=== PATIENT | male | born 1980 | race African-American/Black ===

== ENCOUNTER 2016-08-02 09:05 | Inpatient (IN) | payer OTHER ==
[2016-08-02 10:01] VITALS: BMI 25.9
--- NOTE | 2016-08-02 11:52 | HP ---
CIWA Score - CIWA Score Nausea/Vomitin Muscle Tremors: 4-Moderate,w/Arms Extend Anxiety: 4-Mod. Anxious/Guarded Agitation: 3 Paroxysmal Sweats: 3 Orientation: 0-Oriented Tacttile Disturbances: 0-None Auditory Disturbances: 0-None Visual Disturbances: 0-None Headache: 0-None Present CIWA-Ar Total Score: 19 Admission ROS BHS - HPI Chief Complaint: Withdrawal sx. Allergies/Adverse Reactions: Allergies Allergy/AdvReac Type Severity Reaction Status Date / Time shellfish derived Allergy Severe Vomiting Verified 08/02/16 10:18 NKDA Allergy Uncoded 08/02/16 10:18 History of Present Illness: 35 y/o man with hx of alcoholism is admitted for detox. Pt. has been in previous detox,reports 3 yrs. sobriety. He has hx. of alcohol withdrawal seizure three yrs. ago. Exam Limitations: No Limitations - Ebola screening Have you traveled outside of the country in the last 21 days: No Have you had contact with anyone from an Ebola affected area: No Have you been sick,other than usual withdrawal symptoms: No Do you have a fever: No - Review of Systems Constitutional: Diaphoresis EENT: reports: No Symptoms Reported Respiratory: reports: No Symptoms reported Cardiac: reports: No Symptoms Reported GI: reports: Nausea, Vomiting, Abdominal cramping : reports: No Symptoms Reported Musculoskeletal: reports: No Symptoms Reported Integumentary: reports: Sweating Neuro: reports: Seizure (three yrs. ago), Tremors Endocrine: reports: No Symptoms Reported Hematology: reports: No Symptoms Reported Psychiatric: reports: No Sypmtoms Reported Other Systems: Reviewed and Negative Patient History - Patient Medical History Hx Anemia: No Hx Asthma: No Hx Chronic Obstructive Pulmonary Disease (COPD): No Hx Cancer: No Hx Cardiac Disorders: No Hx Congestive Heart Failure: No Hx Hypertension: Yes (was lisinopril 10mg non-compliant) Hx Hypercholesterolemia: No Hx Pacemaker: No HX Cerebrovascular Accident: No Hx Seizures: Yes (alcohol related x1 in 2011) Hx Dementia: No Hx Diabetes: No Hx Gastrointestinal Disorders: No Hx Liver Disease: No Hx Genitourinary Disorders: No Hx Sexually Transmitted Disorders: No Hx Renal Disease (ESRD): No Hx Thyroid Disease: No Hx Human Immunodeficiency Virus (HIV): No Hx Hepatitis C: No Hx Depression: No Hx Suicide Attempt: No Hx Bipolar Disorder: No Hx Schizophrenia: No - Patient Surgical History Past Surgical History: No Hx Neurologic Surgery: No Hx Cataract Extraction: No Hx Cardiac Surgery: No Hx Lung Surgery: No Hx Breast Surgery: No Hx Breast Biopsy: No Hx Abdominal Surgery: No Hx Appendectomy: No Hx Cholecystectomy: No Hx Genitourinary Surgery: No Hx Section: No Hx Orthopedic Surgery: No Anesthesia Reaction: No - PPD History Previous Implant?: Yes Documented Results: Negative w/proof Implanted On Prior [facility] Admission?: Yes Date: 02/15/12 Results: 0 mm PPD to be Administered?: Yes - Smoking Cessation Smoking history: Current every day smoker Have you smoked in the past 12 months: Yes Aproximately how many cigarettes per day: 10 Hx Chewing Tobacco Use: No Initiated information on smoking cessation: Yes 'Breaking Loose' booklet given: 08/02/16 - Substance & Tx. History Hx Alcohol Use: Yes Hx Substance Use: Yes Substance Use Type: Alcohol, Marijuana Hx Substance Use Treatment: Yes (detox,IOP) - Substances Abused Alcohol-beer Route: Oral Frequency: Daily Amount used: 6 (40 oz.) Age of first use: 21 Date of Last Use: 08/01/16 Marijuana Route: Smoking Frequency: Daily Amount used: $20 Age of first use: 15 Date of Last Use: 08/01/16 Family Disease History - Family Disease History Family Disease History: Heart Disease: Grandparent (htn,alcohol), Father (htn, alcohol), Mother (htn,alcohol), Brother (htn,alcohol), Other: Grandparent, Father, Mother, Brother Admission Physical Exam S - Vital Signs Vital Signs: Vital Signs - 24 hr 08/02/16 09:59 Temperature 97 F L Pulse Rate 90 Respiratory 20 Rate Blood Pressure 149/95 - Physical General Appearance: Yes: Tremorous, Irritable, Sweating, Anxious HEENTM: Yes: Other (laceration above left eyebrow healed) Respiratory: Yes: Chest Non-Tender, Lungs Clear, Normal Breath Sounds Neck: Yes: Supple Breast: Yes: Breast Exam Deferred Cardiology: Yes: Regular Rhythm, Regular Rate, S1, S2 Abdominal: Yes: Normal Bowel Sounds, Non Tender, Soft Genitourinary: Yes: Within Normal Limits Back: Yes: Within Normal Limits Musculoskeletal: Yes: Within Normal Limits Extremities: Yes: Tremors Neurological: Yes: Fully Oriented, Alert Integumentary: Yes: Diaphoresis Lymphatic: Yes: Within Normal Limits - Diagnostic (1) Alcohol dependence with uncomplicated withdrawal Current Visit: Yes Status: Acute (2) Alcohol withdrawal seizure Current Visit: Yes Status: Acute Qualifiers: Complication of substance-induced condition: uncomplicated Qualified Code(s): F10.230 - Alcohol dependence with withdrawal, uncomplicated (3) HTN (hypertension) Current Visit: Yes Status: Acute Qualifiers: Hypertension type: essential hypertension Qualified Code(s): I10 - Essential (primary) hypertension Cleared for Admission [facility] - Detox or Rehab [facility] Level of Care: Medically Managed Detox Regimen/Protocol: Librium [facility] Breath Alcohol Content Breath Alcohol Content: 0 Urine Drug Screen - Results Drug Screen Negative: No Urine Drug Screen Results: THC-Marijuana
[2016-08-02] MEDS ORDERED: ACETAMINOPHEN 325 MG TABLET (FP) PO PRN (12:05)
[2016-08-02] MEDS ORDERED: guaiFENesin/D-METHORPHAN HB 10 ML UNIT-DOSE CUPS PO PRN (12:05)
[2016-08-02] MEDS ORDERED: IBUPROFEN 400 MG TABLET (FP) PO PRN (12:05)
[2016-08-02] MEDS ORDERED: MAGNESIUM HYDROX 2400MG/30ML ORAL SUSPENSION 30 ML CUP PO PRN (12:05)
[2016-08-02] MEDS ORDERED: LOPERAMIDE HCL 2 MG CAPSULE PO PRN (12:05)
[2016-08-02] MEDS ORDERED: NICOTINE POLACRILEX 2 MG GUM BUC PRN (12:05)
[2016-08-02] MEDS ORDERED: MAG HYDROX/AL HYDROX/SIMETH 30 ML UNIT-DOSE CUP PO PRN (12:05)
[2016-08-02] MEDS ORDERED: chlordiazePOXIDE HCL 25 MG CAPSULE PO PRN (12:05)
[2016-08-02] MEDS ORDERED: hydrOXYzine PAMOATE 50 MG CAPSULE (FP) PO PRN (12:05)
[2016-08-02] MEDS ORDERED: P-EPHED 60MG/TRIPROLIDI 2.5MG TABLET PO PRN (12:05)
[2016-08-02] MEDS ORDERED: MAGNESIUM CITRATE 300 ML BOTTLE PO PRN (12:05)
[2016-08-02] MEDS ORDERED: MENTHOL/PHENOL 1 EACH UD MM PRN (12:05)
[2016-08-02] MEDS ORDERED: chlordiazePOXIDE HCL 25 MG CAPSULE PO ONE (13:50)
[2016-08-02] MEDS: NICOTINE 21 MG/24 HOURS TOPICAL PATCH TD SCH (14:06)
[2016-08-02] MEDS: LISINOPRIL 10 MG TABLET (FP) PO SCH (14:06)
[2016-08-02 14:36] LABS: HIV 1 & 2 AB NEGATIVE; HIV 1 AGp24 NEGATIVE
--- NOTE | 2016-08-02 16:12 | EKG ---
Test Reason : Blood Pressure : / mmHG Vent. Rate : 078 BPM Atrial Rate : 078 BPM P-R Int : 160 ms QRS Dur : 098 ms QT Int : 356 ms P-R-T Axes : 047 037 002 degrees QTc Int : 405 ms NORMAL SINUS RHYTHM WITH SINUS ARRHYTHMIA NONSPECIFIC T WAVE ABNORMALITY ABNORMAL ECG NO PREVIOUS ECGS AVAILABLE Confirmed by MIKEL HENDRIX, JOSE DANIEL ([id number]) on 08/02/2016 4:12:13 PM Referred By: Confirmed By:JOSE DANIEL MORIN MD
[2016-08-02] MEDS: chlordiazePOXIDE HCL 25 MG CAPSULE PO SCH ×2 (17:30→22:31)
[2016-08-02 19:15] LABS: URINE APPEARANCE CLEAR; URINE BILIRUBIN NEGATIVE (NEGATIVE); URINE BLOOD NEGATIVE (NEGATIVE); URINE COLOR DKYELLOW; URINE GLUCOSE (UA) NEGATIVE (NEGATIVE); URINE KETONE NEGATIVE (NEGATIVE); URINE LEUK ESTERASE NEGATIVE (NEGATIVE); URINE NITRITE NEGATIVE (NEGATIVE); URINE UROBILINOGEN 4.0 E.U/dl E.U./dl (0.2-1.0)
[2016-08-02 19:17] LABS: URINE PROTEIN 2+ (NEGATIVE)
[2016-08-02 19:24] LABS: URINE MUCUS RARE; URINE RBC 2 /hpf (0-3); URINE WBC 1 /hpf (3-5)
[2016-08-02] MEDS: THIAMINE HCL 100 MG TABLET (FP) PO SCH (22:31)
[2016-08-02] MEDS: diphenhydrAMINE HCL 50 MG CAPSULE PO PRN (22:31)
[2016-08-03] MEDS: chlordiazePOXIDE HCL 25 MG CAPSULE PO SCH ×4 (05:41→22:24)
[2016-08-03 10:20] LABS: MCH 28.1 pg (25.7-33.7); MCHC 32.5 g/dl (32.0-35.9); MEAN CELL VOLUME 86.7 fl (80-96); MEAN PLT VOLUME 10.5 fl (7.5-11.1); PLATELET COUNT 183 K/MM3 (134-434); RDW 13.7 % (11.9-15.9)
[2016-08-03] MEDS: PRENATAL VITAMINS W/ FOLIC ACID TABLET (FP) PO SCH (10:22)
[2016-08-03] MEDS: NICOTINE 21 MG/24 HOURS TOPICAL PATCH TD SCH (10:22)
[2016-08-03] MEDS: LISINOPRIL 10 MG TABLET (FP) PO SCH (10:22)
[2016-08-03 10:31] LABS: ALBUMIN 4.1 g/dl (3.4-5.0); ALK PHOS 88 U/L (45-117); ANION GAP 10 (8-16); BILIRUBIN,TOTAL 0.8 mg/dL (0.2-1.0); CALCIUM 9.5 mg/dL (8.5-10.1); CO2 28 mmol/L (21-32); GLUCOSE,RANDOM 131 mg/dL (74-106); SGOT/AST 54 U/L (15-37); SGPT/ALT 33 U/L (12-78); TOT PROT 7.8 g/dl (6.4-8.2)
[2016-08-03 14:50] LABS: URINE APPEARANCE CLEAR; URINE BILIRUBIN NEGATIVE (NEGATIVE); URINE BLOOD NEGATIVE (NEGATIVE); URINE COLOR YELLOW; URINE GLUCOSE (UA) NEGATIVE (NEGATIVE); URINE KETONE NEGATIVE (NEGATIVE); URINE LEUK ESTERASE NEGATIVE (NEGATIVE); URINE NITRITE NEGATIVE (NEGATIVE); URINE UROBILINOGEN NEGATIVE E.U./dl (0.2-1.0)
[2016-08-03 14:52] LABS: URINE PROTEIN 1+ (NEGATIVE)
[2016-08-03 15:21] LABS: URINE MUCUS FEW; URINE WBC 1 /hpf (3-5)
--- NOTE | 2016-08-03 16:43 | PN ---
[facility] CIWA - CIWA Score Nausea/Vomitin-No Nausea/No Vomiting Muscle Tremors: 3 Anxiety: 4-Mod. Anxious/Guarded Agitation: 3 Paroxysmal Sweats: 3 Orientation: 0-Oriented Tacttile Disturbances: 0-None Auditory Disturbances: 0-None Visual Disturbances: 0-None Headache: 0-None Present CIWA-Ar Total Score: 13 S Progress Note (SOAP) Subjective: Anxiety,tremors,sweating,interrupted sleep,restless Objective: 08/03/16 16:42 Vital Signs - 8 hr 08/03/16 08/03/16 10:20 13:39 Temperature 96.2 F L 98.4 F Pulse Rate 70 73 Respiratory 20 18 Rate Blood Pressure 124/85 125/76 Laboratory Tests 08/02/16 08/02/16 08/03/16 11:30 13:00 06:00 WBC 7.0 D RBC 5.15 Hgb 14.5 Hct 44.7 MCV 86.7 MCHC 32.5 RDW 13.7 Plt Count 183 MPV 10.5 Sodium Potassium Chloride Carbon Dioxide Anion Gap BUN Creatinine Creat Clearance w eGFR Random Glucose Calcium Total Bilirubin AST ALT Alkaline Phosphatase Total Protein Albumin Urine Color Dkyellow Urine Appearance Clear Urine pH 7.0 Ur Specific [place] 1.027 Urine Protein 2+ H Urine Glucose (UA) Negative Urine Ketones Negative Urine Blood Negative Urine Nitrite Negative Urine Bilirubin Negative Urine Urobilinogen 4.0 e.u/dl Ur Leukocyte Esterase Negative Urine RBC 2 Urine WBC 1 Urine Mucus Rare RPR Titer HIV 1&2 Antibody Screen Negative HIV P24 Antigen Negative 08/03/16 08/03/16 08/03/16 06:00 06:00 12:20 WBC RBC Hgb Hct MCV MCHC RDW Plt Count MPV Sodium 137 Potassium 3.9 Chloride 99 Carbon Dioxide 28 Anion Gap 10 BUN 12 Creatinine 1.0 D Creat Clearance w eGFR > 60 Random Glucose 131 H D Calcium 9.5 Total Bilirubin 0.8 AST 54 H ALT 33 D Alkaline Phosphatase 88 Total Protein 7.8 Albumin 4.1 Urine Color Yellow Urine Appearance Clear Urine pH 6.0 Ur Specific [place] 1.027 Urine Protein 1+ H Urine Glucose (UA) Negative Urine Ketones Negative Urine Blood Negative Urine Nitrite Negative Urine Bilirubin Negative Urine Urobilinogen Negative Ur Leukocyte Esterase Negative Urine RBC None Urine WBC 1 Urine Mucus Few RPR Titer Nonreactive HIV 1&2 Antibody Screen HIV P24 Antigen labs noted Assessment: 08/03/16 16:42 withdrawal sx. Plan: continue detox
[2016-08-03] MEDS: THIAMINE HCL 100 MG TABLET (FP) PO SCH (22:24)
[2016-08-03] MEDS: diphenhydrAMINE HCL 50 MG CAPSULE PO PRN (22:25)
[2016-08-04] MEDS: chlordiazePOXIDE HCL 25 MG CAPSULE PO SCH ×2 (05:34→10:27)
[2016-08-04] MEDS: LISINOPRIL 10 MG TABLET (FP) PO SCH (10:27)
[2016-08-04] MEDS: NICOTINE 21 MG/24 HOURS TOPICAL PATCH TD SCH (10:27)
[2016-08-04] MEDS: PRENATAL VITAMINS W/ FOLIC ACID TABLET (FP) PO SCH (10:27)
--- NOTE | 2016-08-04 13:23 | PN ---
[facility] CIWA - CIWA Score Nausea/Vomitin-No Nausea/No Vomiting Muscle Tremors: 3 Anxiety: 4-Mod. Anxious/Guarded Agitation: 3 Paroxysmal Sweats: 3 Orientation: 0-Oriented Tacttile Disturbances: 0-None Auditory Disturbances: 0-None Visual Disturbances: 0-None Headache: 0-None Present CIWA-Ar Total Score: 13 S Progress Note (SOAP) Subjective: sweating,interrupted sleep,restless Objective: 08/04/16 13:21 Vital Signs - 8 hr 08/04/16 08/04/16 06:45 09:57 Temperature 97.0 F L 96.3 F L Pulse Rate 86 81 Respiratory 18 18 Rate Blood Pressure 132/91 129/92 Laboratory Tests 08/02/16 08/02/16 08/03/16 11:30 13:00 06:00 WBC 7.0 D RBC 5.15 Hgb 14.5 Hct 44.7 MCV 86.7 MCHC 32.5 RDW 13.7 Plt Count 183 MPV 10.5 Sodium Potassium Chloride Carbon Dioxide Anion Gap BUN Creatinine Creat Clearance w eGFR Random Glucose Calcium Total Bilirubin AST ALT Alkaline Phosphatase Total Protein Albumin Urine Color Dkyellow Urine Appearance Clear Urine pH 7.0 Ur Specific [place] 1.027 Urine Protein 2+ H Urine Glucose (UA) Negative Urine Ketones Negative Urine Blood Negative Urine Nitrite Negative Urine Bilirubin Negative Urine Urobilinogen 4.0 e.u/dl Ur Leukocyte Esterase Negative Urine RBC 2 Urine WBC 1 Urine Mucus Rare RPR Titer HIV 1&2 Antibody Screen Negative HIV P24 Antigen Negative 08/03/16 08/03/16 08/03/16 06:00 06:00 12:20 WBC RBC Hgb Hct MCV MCHC RDW Plt Count MPV Sodium 137 Potassium 3.9 Chloride 99 Carbon Dioxide 28 Anion Gap 10 BUN 12 Creatinine 1.0 D Creat Clearance w eGFR > 60 Random Glucose 131 H D Calcium 9.5 Total Bilirubin 0.8 AST 54 H ALT 33 D Alkaline Phosphatase 88 Total Protein 7.8 Albumin 4.1 Urine Color Yellow Urine Appearance Clear Urine pH 6.0 Ur Specific [place] 1.027 Urine Protein 1+ H Urine Glucose (UA) Negative Urine Ketones Negative Urine Blood Negative Urine Nitrite Negative Urine Bilirubin Negative Urine Urobilinogen Negative Ur Leukocyte Esterase Negative Urine RBC None Urine WBC 1 Urine Mucus Few RPR Titer Nonreactive HIV 1&2 Antibody Screen HIV P24 Antigen labs noted Assessment: 08/04/16 13:23 Withdrawal sx. Plan: Continue detox
[2016-08-04] MEDS: chlordiazePOXIDE 5 MG CAPSULE PO SCH ×2 (17:20→22:36)
[2016-08-04] MEDS: THIAMINE HCL 100 MG TABLET (FP) PO SCH (22:36)
[2016-08-04] MEDS: diphenhydrAMINE HCL 50 MG CAPSULE PO PRN (22:37)
[2016-08-05] MEDS: chlordiazePOXIDE 5 MG CAPSULE PO SCH ×2 (05:48→10:21)
[2016-08-05] MEDS: LISINOPRIL 10 MG TABLET (FP) PO SCH (10:21)
[2016-08-05] MEDS: BACITRACIN 0.9 GM PACKET TP SCH ×2 (10:21→22:23)
[2016-08-05] MEDS: PRENATAL VITAMINS W/ FOLIC ACID TABLET (FP) PO SCH (10:22)
[2016-08-05] MEDS: NICOTINE 21 MG/24 HOURS TOPICAL PATCH TD SCH (10:22)
--- NOTE | 2016-08-05 11:18 | PN ---
[facility] Progress Note (SOAP) Subjective: ANXIETY,SWEATS,FATIGUE. Objective: 08/05/16 11:18 Vital Signs Temperature 97.1 F L 08/05/16 09:42 Pulse Rate 79 08/05/16 09:42 Respiratory Rate 18 08/05/16 09:42 Blood Pressure 144/98 08/05/16 09:42 O2 Sat by Pulse Oximetry (%) Assessment: 08/05/16 11:18 WITHDRAWAL SX Plan: CONTINUE DETOX
[2016-08-05] MEDS: chlordiazePOXIDE HCL 10 MG CAPSULE PO SCH ×2 (17:29→22:23)
[2016-08-05] MEDS: THIAMINE HCL 100 MG TABLET (FP) PO SCH (22:23)
[2016-08-05] MEDS: diphenhydrAMINE HCL 50 MG CAPSULE PO PRN (22:23)
[2016-08-06] MEDS: chlordiazePOXIDE HCL 10 MG CAPSULE PO SCH (05:44)
[2016-08-06 06:29] VITALS: BP 123/88; PULSE 80; TEMP 96.2
--- NOTE | 2016-08-06 15:36 | DS ---
[facility] Detox Discharge Summary Admission Date: 08/02/16 Discharge Date: 08/06/16 - History Present History: Alcohol Dependence Additional Comments: ADVISED PT. TO FOLLOW-UP WITH [facility] / REHAB MEDICAL PROVIDER AFTER DISCHARGE FROM DETOX FOR GENERAL MEDICAL ASSESSMENT. Pertinent Past History: HTN. - Physical Exam Results Vital Signs: Vital Signs Temperature 96.2 F L 08/06/16 06:29 Pulse Rate 80 08/06/16 06:29 Respiratory Rate 18 08/06/16 06:29 Blood Pressure 123/88 08/06/16 06:29 O2 Sat by Pulse Oximetry (%) Pertinent Admission Physical Exam Findings: WITHDRAWAL SYMPTOMS. Laboratory Last Values WBC 7.0 K/mm3 (4.0-10.0) D 08/03/16 06:00 RBC 5.15 M/mm3 (4.00-5.60) 08/03/16 06:00 Hgb 14.5 GM/dL (11.7-16.9) 08/03/16 06:00 Hct 44.7 % (35.4-49) 08/03/16 06:00 MCV 86.7 fl (80-96) 08/03/16 06:00 MCHC 32.5 g/dl (32.0-35.9) 08/03/16 06:00 RDW 13.7 % (11.9-15.9) 08/03/16 06:00 Plt Count 183 K/MM3 (134-434) 08/03/16 06:00 MPV 10.5 fl (7.5-11.1) 08/03/16 06:00 Sodium 137 mmol/L (136-145) 08/03/16 06:00 Potassium 3.9 mmol/L (3.5-5.1) 08/03/16 06:00 Chloride 99 mmol/L (98-107) 08/03/16 06:00 Carbon Dioxide 28 mmol/L (21-32) 08/03/16 06:00 Anion Gap 10 (8-16) 08/03/16 06:00 BUN 12 mg/dL (7-18) 08/03/16 06:00 Creatinine 1.0 mg/dL (0.7-1.3) D 08/03/16 06:00 Creat Clearance w eGFR > 60 (>60) 08/03/16 06:00 Random Glucose 131 mg/dL (74-106) H D 08/03/16 06:00 Calcium 9.5 mg/dL (8.5-10.1) 08/03/16 06:00 Total Bilirubin 0.8 mg/dL (0.2-1.0) 08/03/16 06:00 AST 54 U/L (15-37) H 08/03/16 06:00 ALT 33 U/L (12-78) D 08/03/16 06:00 Alkaline Phosphatase 88 U/L (45-117) 08/03/16 06:00 Total Protein 7.8 g/dl (6.4-8.2) 08/03/16 06:00 Albumin 4.1 g/dl (3.4-5.0) 08/03/16 06:00 Urine Color Yellow 08/03/16 12:20 Urine Appearance Clear 08/03/16 12:20 Urine pH 6.0 (5.0-8.0) 08/03/16 12:20 Ur Specific [place] 1.027 (1.001-1.035) 08/03/16 12:20 Urine Protein 1+ (NEGATIVE) H 08/03/16 12:20 Urine Glucose (UA) Negative (NEGATIVE) 08/03/16 12:20 Urine Ketones Negative (NEGATIVE) 08/03/16 12:20 Urine Blood Negative (NEGATIVE) 08/03/16 12:20 Urine Nitrite Negative (NEGATIVE) 08/03/16 12:20 Urine Bilirubin Negative (NEGATIVE) 08/03/16 12:20 Urine Urobilinogen Negative E.U./dl (0.2-1.0) 08/03/16 12:20 Ur Leukocyte Esterase Negative (NEGATIVE) 08/03/16 12:20 Urine RBC None /hpf (0-3) 08/03/16 12:20 Urine WBC 1 /hpf (3-5) 08/03/16 12:20 Urine Mucus Few 08/03/16 12:20 RPR Titer Nonreactive (NONREACTIVE) 08/03/16 06:00 HIV 1&2 Antibody Screen Negative 08/02/16 11:30 HIV P24 Antigen Negative 08/02/16 11:30 LABS NOTED. - Treatment Hospital Course: Detox Protocol Followed, Detoxed Safely, Responded well, Discharged Condition Good - Medication Discharge Medications: Ambulatory Orders No Home Medications 02/13/12 - Diagnosis (1) Alcohol dependence with uncomplicated withdrawal Status: Acute (2) Alcohol withdrawal seizure Status: Acute Qualifiers: Complication of substance-induced condition: uncomplicated Qualified Code(s): F10.230 - Alcohol dependence with withdrawal, uncomplicated (3) HTN (hypertension) Status: Chronic Qualifiers: Hypertension type: essential hypertension Qualified Code(s): I10 - Essential (primary) hypertension - AMA Did Patient Leave Against Medical Advice: No
== END 2016-08-06 09:17 | disposition home or self-care (01) | DRG 775 ==
LOC: YASAS 09:05 → Y3N 13:19
PROVIDERS: ADMIT Internal Medicine; ATTEND Internal Medicine
PROC: HZ2ZZZZ Detoxification Services for Substance Abuse Treatment (ICD-10-PCS; principal; 2016-08-06)
DX: F10.230 Alcohol dependence with withdrawal, uncomplicated (principal); G40.509 Epileptic seizures related to external causes, not intractable, without status epilepticus; I10 Essential (primary) hypertension
CPT/HCPCS: 36415; 80053; 81003; 81015; 85027; 86593; 87389; 93005; 93010

== ENCOUNTER 2021-02-25 11:50 | Inpatient (IN) | payer OTHER ==
[2021-02-25] MEDS ORDERED: MAGNESIUM CITRATE 300 ML BOTTLE PO PRN ×2 (15:59→20:22)
[2021-02-25] MEDS ORDERED: LOPERAMIDE HCL 2 MG CAPSULE PO PRN ×2 (15:59→20:22)
[2021-02-25] MEDS ORDERED: P-EPHED 60MG/TRIPROLIDI 2.5MG TABLET PO PRN ×2 (15:59→20:22)
[2021-02-25] MEDS ORDERED: IBUPROFEN 400 MG TABLET (FP) PO PRN ×2 (15:59→20:22)
[2021-02-25] MEDS ORDERED: MAG HYDROX/AL HYDROX/SIMETH 30 ML UNIT-DOSE CUP PO PRN ×2 (15:59→20:22)
[2021-02-25] MEDS ORDERED: MAGNESIUM HYDROX 2400MG/30ML ORAL SUSPENSION 30 ML CUP PO PRN ×2 (15:59→20:22)
[2021-02-25] MEDS ORDERED: NICOTINE 10 MG CARTRIDGE (INHALER) IH PRN (15:59)
[2021-02-25] MEDS ORDERED: hydrOXYzine PAMOATE 25 MG CAPSULE (FP) PO PRN (15:59)
[2021-02-25] MEDS ORDERED: ACETAMINOPHEN 325 MG TABLET (FP) PO PRN (15:59)
[2021-02-25] MEDS ORDERED: guaiFENesin 200 MG/10 ML 10 ML UNIT-DOSE CUPS PO PRN ×2 (15:59→20:22)
[2021-02-25 16:04] VITALS: BMI 29.7
[2021-02-25] MEDS ORDERED: THIAMINE HCL 100 MG TABLET (FP) PO SCH (22:00)
[2021-02-25] MEDS ORDERED: MELATONIN 5 MG TABLETS PO SCH (22:00)
[2021-02-25] MEDS: THIAMINE HCL 100 MG TABLET (FP) PO SCH (22:31)
[2021-02-25] MEDS ORDERED: levETIRAcetam 500 MG TABLET (FP) PO ONE (23:31)
[2021-02-25] MEDS: hydrOXYzine PAMOATE 25 MG CAPSULE (FP) PO SCH (23:42)
[2021-02-25] MEDS: MELATONIN 5 MG TABLETS PO SCH (23:43)
[2021-02-26] MEDS: hydrOXYzine PAMOATE 25 MG CAPSULE (FP) PO SCH ×5 (06:48→22:06)
[2021-02-26] MEDS: NICOTINE 7 MG/24 HOURS TOPICAL PATCH TD SCH (09:58)
[2021-02-26] MEDS: levETIRAcetam 500 MG TABLET (FP) PO SCH ×2 (09:58→22:06)
[2021-02-26] MEDS: PRENATAL VITAMINS W/ FOLIC ACID TABLET (FP) PO SCH (09:58)
[2021-02-26] MEDS: NICOTINE 10 MG CARTRIDGE (INHALER) IH PRN (09:59)
[2021-02-26] MEDS ORDERED: PRENATAL VITAMINS W/ FOLIC ACID TABLET (FP) PO SCH (10:00)
[2021-02-26] MEDS ORDERED: NICOTINE 7 MG/24 HOURS TOPICAL PATCH TD SCH (10:00)
[2021-02-26 11:17] LABS: URINE APPEARANCE CLEAR; URINE BILIRUBIN NEGATIVE (NEGATIVE); URINE COLOR YELLOW; URINE GLUCOSE (UA) NEGATIVE (NEGATIVE); URINE KETONE NEGATIVE (NEGATIVE); URINE LEUK ESTERASE NEGATIVE (NEGATIVE); URINE NITRITE NEGATIVE (NEGATIVE); URINE PROTEIN NEGATIVE (NEGATIVE); URINE UROBILINOGEN 0.2 mg/dL (0.2-1.0)
[2021-02-26 11:23] LABS: HEMATOCRIT 41.1 % (35.4-49); HEMOGLOBIN 13.9 GM/dL (11.7-16.9); MCH 29.6 pg (25.7-33.7); MCHC 33.8 g/dl (32.0-35.9); MEAN CELL VOLUME 87.4 fl (80-96); MEAN PLT VOLUME 10.1 fl (7.5-11.1); PLATELET COUNT 215 10^3/uL (134-434); RDW 13.8 % (11.9-15.9); WHITE BLOOD COUNT 6.3 K/mm3 (4.0-10.0)
[2021-02-26 11:39] LABS: ALBUMIN 3.2 g/dl (3.4-5.0)
[2021-02-26 11:42] LABS: CREATININE 0.9 mg/dL (0.55-1.3)
[2021-02-26 11:44] LABS: BILIRUBIN,TOTAL 0.6 mg/dL (0.2-1); TOT PROT 7.3 g/dl (6.4-8.2)
[2021-02-26] MEDS ORDERED: cloNIDine HCL 0.1 MG TABLET PO ONE (21:48)
[2021-02-26] MEDS: THIAMINE HCL 100 MG TABLET (FP) PO SCH (22:06)
[2021-02-26] MEDS: MELATONIN 5 MG TABLETS PO SCH (22:07)
[2021-02-27] MEDS: hydrOXYzine PAMOATE 25 MG CAPSULE (FP) PO SCH ×5 (06:32→22:05)
[2021-02-27] MEDS: levETIRAcetam 500 MG TABLET (FP) PO SCH ×2 (10:22→22:04)
[2021-02-27] MEDS: PRENATAL VITAMINS W/ FOLIC ACID TABLET (FP) PO SCH (10:23)
[2021-02-27] MEDS: NICOTINE 7 MG/24 HOURS TOPICAL PATCH TD SCH (10:23)
[2021-02-27] MEDS: THIAMINE HCL 100 MG TABLET (FP) PO SCH (22:04)
[2021-02-27] MEDS: MELATONIN 5 MG TABLETS PO SCH (22:05)
[2021-02-28] MEDS: hydrOXYzine PAMOATE 25 MG CAPSULE (FP) PO SCH ×5 (06:01→21:58)
[2021-02-28] MEDS: PRENATAL VITAMINS W/ FOLIC ACID TABLET (FP) PO SCH (09:49)
[2021-02-28] MEDS: levETIRAcetam 500 MG TABLET (FP) PO SCH ×2 (09:49→21:58)
[2021-02-28] MEDS: NICOTINE 7 MG/24 HOURS TOPICAL PATCH TD SCH (09:50)
[2021-02-28] MEDS: THIAMINE HCL 100 MG TABLET (FP) PO SCH (21:58)
[2021-02-28] MEDS: MELATONIN 5 MG TABLETS PO SCH (21:58)
[2021-03-01] MEDS: hydrOXYzine PAMOATE 25 MG CAPSULE (FP) PO SCH ×2 (07:23→10:09)
[2021-03-01] MEDS: NICOTINE 7 MG/24 HOURS TOPICAL PATCH TD SCH (10:09)
[2021-03-01] MEDS: levETIRAcetam 500 MG TABLET (FP) PO SCH ×2 (10:09→21:40)
[2021-03-01] MEDS: PRENATAL VITAMINS W/ FOLIC ACID TABLET (FP) PO SCH (10:09)
[2021-03-01] MEDS: hydrOXYzine PAMOATE 25 MG CAPSULE (FP) PO PRN ×2 (15:58→21:41)
[2021-03-01] MEDS: MELATONIN 5 MG TABLETS PO SCH (21:40)
[2021-03-01] MEDS: THIAMINE HCL 100 MG TABLET (FP) PO SCH (21:41)
[2021-03-01] MEDS: NICOTINE 10 MG CARTRIDGE (INHALER) IH PRN (21:42)
[2021-03-02] MEDS: hydrOXYzine PAMOATE 25 MG CAPSULE (FP) PO PRN ×4 (06:22→21:36)
[2021-03-02] MEDS: NICOTINE 7 MG/24 HOURS TOPICAL PATCH TD SCH (10:21)
[2021-03-02] MEDS: levETIRAcetam 500 MG TABLET (FP) PO SCH ×2 (10:21→21:36)
[2021-03-02] MEDS: PRENATAL VITAMINS W/ FOLIC ACID TABLET (FP) PO SCH (10:23)
[2021-03-02] MEDS: MELATONIN 5 MG TABLETS PO SCH (21:36)
[2021-03-02] MEDS: THIAMINE HCL 100 MG TABLET (FP) PO SCH (21:36)
[2021-03-03] MEDS: hydrOXYzine PAMOATE 25 MG CAPSULE (FP) PO PRN ×3 (06:07→21:24)
[2021-03-03] MEDS: PRENATAL VITAMINS W/ FOLIC ACID TABLET (FP) PO SCH (10:11)
[2021-03-03] MEDS: levETIRAcetam 500 MG TABLET (FP) PO SCH ×2 (10:11→21:24)
[2021-03-03] MEDS: NICOTINE 7 MG/24 HOURS TOPICAL PATCH TD SCH (10:12)
[2021-03-03] MEDS: TOLNAFTATE 1% CREAM 15 GM TUBE TP SCH ×2 (15:22→21:25)
[2021-03-03] MEDS: THIAMINE HCL 100 MG TABLET (FP) PO SCH (21:24)
[2021-03-03] MEDS: MELATONIN 5 MG TABLETS PO SCH (21:24)
[2021-03-04] MEDS: hydrOXYzine PAMOATE 25 MG CAPSULE (FP) PO PRN ×3 (06:14→21:26)
[2021-03-04] MEDS: levETIRAcetam 500 MG TABLET (FP) PO SCH ×2 (10:26→21:25)
[2021-03-04] MEDS: TOLNAFTATE 1% CREAM 15 GM TUBE TP SCH ×2 (10:28→21:26)
[2021-03-04] MEDS: PRENATAL VITAMINS W/ FOLIC ACID TABLET (FP) PO SCH (10:28)
[2021-03-04] MEDS: NICOTINE 7 MG/24 HOURS TOPICAL PATCH TD SCH (10:28)
[2021-03-04] MEDS: THIAMINE HCL 100 MG TABLET (FP) PO SCH (21:25)
[2021-03-04] MEDS: MELATONIN 5 MG TABLETS PO SCH (21:25)
[2021-03-05] MEDS: PRENATAL VITAMINS W/ FOLIC ACID TABLET (FP) PO SCH (09:43)
[2021-03-05] MEDS: levETIRAcetam 500 MG TABLET (FP) PO SCH ×2 (09:44→22:06)
[2021-03-05] MEDS: hydrOXYzine PAMOATE 25 MG CAPSULE (FP) PO PRN ×2 (09:44→22:08)
[2021-03-05] MEDS: TOLNAFTATE 1% CREAM 15 GM TUBE TP SCH ×2 (09:44→22:08)
[2021-03-05] MEDS: NICOTINE 7 MG/24 HOURS TOPICAL PATCH TD SCH (09:44)
[2021-03-05] MEDS: MELATONIN 5 MG TABLETS PO SCH (22:06)
[2021-03-05] MEDS: THIAMINE HCL 100 MG TABLET (FP) PO SCH (22:06)
[2021-03-05] MEDS ORDERED: PT OWN MED DRAWER 7, Y5N ONE (22:10)
[2021-03-06] MEDS: NICOTINE 7 MG/24 HOURS TOPICAL PATCH TD SCH (10:09)
[2021-03-06] MEDS: levETIRAcetam 500 MG TABLET (FP) PO SCH ×2 (10:09→21:45)
[2021-03-06] MEDS: PRENATAL VITAMINS W/ FOLIC ACID TABLET (FP) PO SCH (10:09)
[2021-03-06] MEDS: hydrOXYzine PAMOATE 25 MG CAPSULE (FP) PO PRN ×2 (10:10→21:45)
[2021-03-06] MEDS: TOLNAFTATE 1% CREAM 15 GM TUBE TP SCH ×2 (11:09→21:46)
[2021-03-06] MEDS: NICOTINE 10 MG CARTRIDGE (INHALER) IH PRN (20:55)
[2021-03-06] MEDS: THIAMINE HCL 100 MG TABLET (FP) PO SCH (21:46)
[2021-03-06] MEDS: MELATONIN 5 MG TABLETS PO SCH (21:46)
[2021-03-07] MEDS: PRENATAL VITAMINS W/ FOLIC ACID TABLET (FP) PO SCH (10:26)
[2021-03-07] MEDS: hydrOXYzine PAMOATE 25 MG CAPSULE (FP) PO PRN ×2 (10:27→21:38)
[2021-03-07] MEDS: levETIRAcetam 500 MG TABLET (FP) PO SCH ×2 (10:27→21:38)
[2021-03-07] MEDS: TOLNAFTATE 1% CREAM 15 GM TUBE TP SCH ×2 (10:27→21:39)
[2021-03-07] MEDS: NICOTINE 7 MG/24 HOURS TOPICAL PATCH TD SCH (10:27)
[2021-03-07] MEDS: MELATONIN 5 MG TABLETS PO SCH (21:38)
[2021-03-07] MEDS: THIAMINE HCL 100 MG TABLET (FP) PO SCH (21:40)
[2021-03-08] MEDS ORDERED: PT OWN MED DRAWER 7, Y5N ONE (10:54)
[2021-03-08] MEDS: TOLNAFTATE 1% CREAM 15 GM TUBE TP SCH ×2 (10:55→21:41)
[2021-03-08] MEDS: PRENATAL VITAMINS W/ FOLIC ACID TABLET (FP) PO SCH (10:55)
[2021-03-08] MEDS: NICOTINE 7 MG/24 HOURS TOPICAL PATCH TD SCH (10:55)
[2021-03-08] MEDS: hydrOXYzine PAMOATE 25 MG CAPSULE (FP) PO PRN ×2 (10:56→21:41)
[2021-03-08] MEDS: levETIRAcetam 500 MG TABLET (FP) PO SCH ×2 (10:57→21:40)
[2021-03-08] MEDS: THIAMINE HCL 100 MG TABLET (FP) PO SCH (21:41)
[2021-03-08] MEDS: MELATONIN 5 MG TABLETS PO SCH (21:41)
[2021-03-09] MEDS: PRENATAL VITAMINS W/ FOLIC ACID TABLET (FP) PO SCH (10:12)
[2021-03-09] MEDS: levETIRAcetam 500 MG TABLET (FP) PO SCH ×2 (10:12→21:25)
[2021-03-09] MEDS: hydrOXYzine PAMOATE 25 MG CAPSULE (FP) PO PRN ×2 (10:13→21:25)
[2021-03-09] MEDS: TOLNAFTATE 1% CREAM 15 GM TUBE TP SCH ×2 (10:53→21:25)
[2021-03-09] MEDS: NICOTINE 7 MG/24 HOURS TOPICAL PATCH TD SCH (10:53)
[2021-03-09] MEDS: THIAMINE HCL 100 MG TABLET (FP) PO SCH (21:25)
[2021-03-09] MEDS: MELATONIN 5 MG TABLETS PO SCH (21:25)
[2021-03-10] MEDS: levETIRAcetam 500 MG TABLET (FP) PO SCH ×2 (10:07→21:22)
[2021-03-10] MEDS: PRENATAL VITAMINS W/ FOLIC ACID TABLET (FP) PO SCH (10:07)
[2021-03-10] MEDS: TOLNAFTATE 1% CREAM 15 GM TUBE TP SCH ×2 (10:07→21:23)
[2021-03-10] MEDS: NICOTINE 7 MG/24 HOURS TOPICAL PATCH TD SCH (10:07)
[2021-03-10] MEDS: hydrOXYzine PAMOATE 25 MG CAPSULE (FP) PO PRN ×3 (10:08→21:22)
[2021-03-10] MEDS: THIAMINE HCL 100 MG TABLET (FP) PO SCH (21:22)
[2021-03-10] MEDS: MELATONIN 5 MG TABLETS PO SCH (21:22)
[2021-03-11] MEDS: levETIRAcetam 500 MG TABLET (FP) PO SCH ×2 (10:31→21:40)
[2021-03-11] MEDS: PRENATAL VITAMINS W/ FOLIC ACID TABLET (FP) PO SCH (10:31)
[2021-03-11] MEDS: TOLNAFTATE 1% CREAM 15 GM TUBE TP SCH ×2 (10:32→21:40)
[2021-03-11] MEDS: NICOTINE 7 MG/24 HOURS TOPICAL PATCH TD SCH (10:32)
[2021-03-11] MEDS: MELATONIN 5 MG TABLETS PO SCH (21:40)
[2021-03-11] MEDS: hydrOXYzine PAMOATE 25 MG CAPSULE (FP) PO PRN (21:40)
[2021-03-11] MEDS: THIAMINE HCL 100 MG TABLET (FP) PO SCH (21:40)
[2021-03-12] MEDS: hydrOXYzine PAMOATE 25 MG CAPSULE (FP) PO PRN (07:47)
[2021-03-12] MEDS: levETIRAcetam 500 MG TABLET (FP) PO SCH ×2 (10:20→22:06)
[2021-03-12] MEDS: PRENATAL VITAMINS W/ FOLIC ACID TABLET (FP) PO SCH (10:21)
[2021-03-12] MEDS: NICOTINE 7 MG/24 HOURS TOPICAL PATCH TD SCH (10:21)
[2021-03-12] MEDS: TOLNAFTATE 1% CREAM 15 GM TUBE TP SCH ×2 (10:21→22:07)
[2021-03-12] MEDS ORDERED: JANSSEN COVID-19 VAC,AD26/PF 0.5 ML IM ONE (12:00)
[2021-03-12] MEDS: SUVOREXANT 10 MG TABLET PO PRN (22:05)
[2021-03-12] MEDS: THIAMINE HCL 100 MG TABLET (FP) PO SCH (22:06)
[2021-03-13] MEDS: levETIRAcetam 500 MG TABLET (FP) PO SCH ×2 (10:18→21:40)
[2021-03-13] MEDS: PRENATAL VITAMINS W/ FOLIC ACID TABLET (FP) PO SCH (10:18)
[2021-03-13] MEDS: hydrOXYzine PAMOATE 25 MG CAPSULE (FP) PO PRN ×3 (10:18→21:41)
[2021-03-13] MEDS: TOLNAFTATE 1% CREAM 15 GM TUBE TP SCH ×2 (10:19→21:41)
[2021-03-13] MEDS: NICOTINE 7 MG/24 HOURS TOPICAL PATCH TD SCH (10:19)
[2021-03-13] MEDS: THIAMINE HCL 100 MG TABLET (FP) PO SCH (21:40)
[2021-03-13] MEDS: SUVOREXANT 10 MG TABLET PO PRN (21:42)
[2021-03-14] MEDS: levETIRAcetam 500 MG TABLET (FP) PO SCH ×2 (10:19→21:29)
[2021-03-14] MEDS: PRENATAL VITAMINS W/ FOLIC ACID TABLET (FP) PO SCH (10:19)
[2021-03-14] MEDS: hydrOXYzine PAMOATE 25 MG CAPSULE (FP) PO PRN ×2 (10:19→18:13)
[2021-03-14] MEDS: NICOTINE 7 MG/24 HOURS TOPICAL PATCH TD SCH (10:20)
[2021-03-14] MEDS: TOLNAFTATE 1% CREAM 15 GM TUBE TP SCH ×2 (10:20→21:29)
[2021-03-14] MEDS: SUVOREXANT 10 MG TABLET PO PRN (21:28)
[2021-03-14] MEDS: THIAMINE HCL 100 MG TABLET (FP) PO SCH (21:29)
[2021-03-14] MEDS: NICOTINE 10 MG CARTRIDGE (INHALER) IH PRN (21:30)
[2021-03-15] MEDS: NICOTINE 7 MG/24 HOURS TOPICAL PATCH TD SCH (10:42)
[2021-03-15] MEDS: levETIRAcetam 500 MG TABLET (FP) PO SCH ×2 (10:42→21:40)
[2021-03-15] MEDS: PRENATAL VITAMINS W/ FOLIC ACID TABLET (FP) PO SCH (10:42)
[2021-03-15] MEDS: TOLNAFTATE 1% CREAM 15 GM TUBE TP SCH ×2 (10:43→21:41)
[2021-03-15] MEDS: ACETAMINOPHEN 325 MG TABLET (FP) PO PRN ×2 (11:49→19:37)
[2021-03-15] MEDS: SUVOREXANT 10 MG TABLET PO PRN (21:40)
[2021-03-15] MEDS: THIAMINE HCL 100 MG TABLET (FP) PO SCH (21:40)
[2021-03-15] MEDS: hydrOXYzine PAMOATE 25 MG CAPSULE (FP) PO PRN (21:40)
[2021-03-16] MEDS: PRENATAL VITAMINS W/ FOLIC ACID TABLET (FP) PO SCH (10:29)
[2021-03-16] MEDS: NICOTINE 7 MG/24 HOURS TOPICAL PATCH TD SCH (10:29)
[2021-03-16] MEDS: hydrOXYzine PAMOATE 25 MG CAPSULE (FP) PO PRN ×2 (10:30→21:35)
[2021-03-16] MEDS: levETIRAcetam 500 MG TABLET (FP) PO SCH ×2 (10:30→21:34)
[2021-03-16] MEDS: TOLNAFTATE 1% CREAM 15 GM TUBE TP SCH ×2 (10:30→21:35)
[2021-03-16] MEDS: THIAMINE HCL 100 MG TABLET (FP) PO SCH (21:34)
[2021-03-17] MEDS: PRENATAL VITAMINS W/ FOLIC ACID TABLET (FP) PO SCH (10:15)
[2021-03-17] MEDS: hydrOXYzine PAMOATE 25 MG CAPSULE (FP) PO PRN ×2 (10:15→21:40)
[2021-03-17] MEDS: NICOTINE 7 MG/24 HOURS TOPICAL PATCH TD SCH (10:15)
[2021-03-17] MEDS: TOLNAFTATE 1% CREAM 15 GM TUBE TP SCH ×2 (10:15→22:36)
[2021-03-17] MEDS: levETIRAcetam 500 MG TABLET (FP) PO SCH ×2 (10:15→21:40)
[2021-03-17] MEDS: THIAMINE HCL 100 MG TABLET (FP) PO SCH (21:40)
[2021-03-17] MEDS: SUVOREXANT 10 MG TABLET PO PRN (21:41)
[2021-03-18] MEDS: levETIRAcetam 500 MG TABLET (FP) PO SCH ×2 (10:52→21:37)
[2021-03-18] MEDS: NICOTINE 7 MG/24 HOURS TOPICAL PATCH TD SCH (10:52)
[2021-03-18] MEDS: PRENATAL VITAMINS W/ FOLIC ACID TABLET (FP) PO SCH (10:52)
[2021-03-18] MEDS: hydrOXYzine PAMOATE 25 MG CAPSULE (FP) PO PRN ×3 (10:54→21:38)
[2021-03-18] MEDS: TOLNAFTATE 1% CREAM 15 GM TUBE TP SCH ×2 (10:54→21:38)
[2021-03-18] MEDS: THIAMINE HCL 100 MG TABLET (FP) PO SCH (21:37)
[2021-03-18] MEDS: SUVOREXANT 10 MG TABLET PO PRN (21:39)
[2021-03-18] MEDS: NICOTINE 10 MG CARTRIDGE (INHALER) IH PRN (21:40)
[2021-03-19] MEDS: NICOTINE 7 MG/24 HOURS TOPICAL PATCH TD SCH (09:56)
[2021-03-19] MEDS: levETIRAcetam 500 MG TABLET (FP) PO SCH ×2 (09:56→21:29)
[2021-03-19] MEDS: hydrOXYzine PAMOATE 25 MG CAPSULE (FP) PO PRN ×2 (09:56→21:29)
[2021-03-19] MEDS: PRENATAL VITAMINS W/ FOLIC ACID TABLET (FP) PO SCH (09:57)
[2021-03-19] MEDS: TOLNAFTATE 1% CREAM 15 GM TUBE TP SCH ×2 (09:57→21:31)
[2021-03-19] MEDS: THIAMINE HCL 100 MG TABLET (FP) PO SCH (21:29)
[2021-03-19] MEDS: SUVOREXANT 10 MG TABLET PO PRN (21:29)
[2021-03-20] MEDS: PRENATAL VITAMINS W/ FOLIC ACID TABLET (FP) PO SCH (10:19)
[2021-03-20] MEDS: hydrOXYzine PAMOATE 25 MG CAPSULE (FP) PO PRN ×2 (10:19→21:33)
[2021-03-20] MEDS: levETIRAcetam 500 MG TABLET (FP) PO SCH ×2 (10:19→21:33)
[2021-03-20] MEDS: NICOTINE 7 MG/24 HOURS TOPICAL PATCH TD SCH (10:20)
[2021-03-20] MEDS: TOLNAFTATE 1% CREAM 15 GM TUBE TP SCH ×2 (10:20→21:35)
[2021-03-20] MEDS: THIAMINE HCL 100 MG TABLET (FP) PO SCH (21:33)
[2021-03-20] MEDS: SUVOREXANT 10 MG TABLET PO PRN (21:35)
[2021-03-21] MEDS: levETIRAcetam 500 MG TABLET (FP) PO SCH ×2 (10:05→21:35)
[2021-03-21] MEDS: PRENATAL VITAMINS W/ FOLIC ACID TABLET (FP) PO SCH (10:05)
[2021-03-21] MEDS: hydrOXYzine PAMOATE 25 MG CAPSULE (FP) PO PRN ×2 (10:05→21:35)
[2021-03-21] MEDS: NICOTINE 7 MG/24 HOURS TOPICAL PATCH TD SCH (10:06)
[2021-03-21] MEDS: TOLNAFTATE 1% CREAM 15 GM TUBE TP SCH ×2 (10:06→21:36)
[2021-03-21] MEDS: SUVOREXANT 10 MG TABLET PO PRN (21:35)
[2021-03-21] MEDS: THIAMINE HCL 100 MG TABLET (FP) PO SCH (21:36)
[2021-03-22] MEDS: hydrOXYzine PAMOATE 25 MG CAPSULE (FP) PO PRN ×2 (10:02→21:47)
[2021-03-22] MEDS: levETIRAcetam 500 MG TABLET (FP) PO SCH ×2 (10:02→21:46)
[2021-03-22] MEDS: NICOTINE 7 MG/24 HOURS TOPICAL PATCH TD SCH (10:02)
[2021-03-22] MEDS: PRENATAL VITAMINS W/ FOLIC ACID TABLET (FP) PO SCH (10:02)
[2021-03-22] MEDS: TOLNAFTATE 1% CREAM 15 GM TUBE TP SCH ×2 (10:03→23:31)
[2021-03-22] MEDS: THIAMINE HCL 100 MG TABLET (FP) PO SCH (21:46)
[2021-03-22] MEDS: SUVOREXANT 10 MG TABLET PO PRN (21:49)
[2021-03-23] MEDS: levETIRAcetam 500 MG TABLET (FP) PO SCH ×2 (10:12→21:20)
[2021-03-23] MEDS: TOLNAFTATE 1% CREAM 15 GM TUBE TP SCH ×2 (10:13→21:20)
[2021-03-23] MEDS: hydrOXYzine PAMOATE 25 MG CAPSULE (FP) PO PRN ×2 (10:13→21:20)
[2021-03-23] MEDS: NICOTINE 7 MG/24 HOURS TOPICAL PATCH TD SCH (10:13)
[2021-03-23] MEDS: PRENATAL VITAMINS W/ FOLIC ACID TABLET (FP) PO SCH (10:13)
[2021-03-23] MEDS: THIAMINE HCL 100 MG TABLET (FP) PO SCH (21:19)
[2021-03-23] MEDS: SUVOREXANT 10 MG TABLET PO PRN (21:20)
[2021-03-24 07:02] VITALS: BP 110/78; PULSE 100; TEMP 97.3
[2021-03-24] MEDS: NICOTINE 7 MG/24 HOURS TOPICAL PATCH TD SCH (09:06)
[2021-03-24] MEDS: PRENATAL VITAMINS W/ FOLIC ACID TABLET (FP) PO SCH (09:07)
[2021-03-24] MEDS: TOLNAFTATE 1% CREAM 15 GM TUBE TP SCH (09:07)
[2021-03-24] MEDS: levETIRAcetam 500 MG TABLET (FP) PO SCH (09:07)
== END 2021-03-24 09:20 | disposition home or self-care (01) | DRG 772 ==
LOC: YASAS 11:50 → Y5N 19:34
PROVIDERS: ADMIT Allergy & Immunology; ATTEND Allergy & Immunology
PROC: HZ42ZZZ Group Counseling for Substance Abuse Treatment, Cognitive-Behavioral (ICD-10-PCS; principal; 2021-02-25)
DX: F10.20 Alcohol dependence, uncomplicated (principal); F14.20 Cocaine dependence, uncomplicated; F16.20 Hallucinogen dependence, uncomplicated; F12.20 Cannabis dependence, uncomplicated; F17.210 Nicotine dependence, cigarettes, uncomplicated; F19.282 Other psychoactive substance dependence with psychoactive substance-induced sleep disorder; F19.24 Other psychoactive substance dependence with psychoactive substance-induced mood disorder; F23 Brief psychotic disorder; G40.909 Epilepsy, unspecified, not intractable, without status epilepticus; I10 Essential (primary) hypertension; B35.3 Tinea pedis; Z62.810 Personal history of physical and sexual abuse in childhood; Z91.410 Personal history of adult physical and sexual abuse
CPT/HCPCS: 0031A; 36415; 80053; 80177; 81003; 85027; 86780; 91303; C9803; J0735; U0003; U0005

== ENCOUNTER 2023-11-02 17:51 | Inpatient (IN) | payer OTHER ==
[2023-11-02 19:08] VITALS: BMI 26.5
[2023-11-02] MEDS ORDERED: cloNIDine HCL 0.1 MG TABLET ONE (19:53)
[2023-11-02] MEDS ORDERED: levETIRAcetam 500 MG TABLET (FP) PO ONE (19:53)
[2023-11-02] MEDS: levETIRAcetam 500 MG TABLET (FP) PO ONE (19:58)
[2023-11-02] MEDS: cloNIDine HCL 0.1 MG TABLET PO ONE (19:58)
[2023-11-02] MEDS ORDERED: IBUPROFEN 600 MG TABLET (FP) PO PRN (20:02)
[2023-11-02] MEDS ORDERED: ONDANSETRON *ODT* 4 MG TABLET SL PRN (20:02)
[2023-11-02] MEDS ORDERED: MAG HYDROX/AL HYDROX/SIMETH 30 ML UNIT-DOSE CUP PO PRN (20:02)
[2023-11-02] MEDS ORDERED: LOPERAMIDE HCL 2 MG CAPSULE PO PRN (20:02)
[2023-11-02] MEDS ORDERED: POLYETHYLENE GLYCOL (HEALTHYLAX) 3350 17 GM PACKET PO PRN (20:02)
[2023-11-02] MEDS ORDERED: hydrOXYzine PAMOATE 25 MG CAPSULE (FP) PO PRN (20:02)
[2023-11-02] MEDS ORDERED: BENZOCAINE/MENTHOL (CHLORASEPTIC ) LOZENGE MM PRN (20:02)
[2023-11-02] MEDS ORDERED: IBUPROFEN 400 MG TABLET (FP) PO PRN (20:02)
[2023-11-02] MEDS ORDERED: BENZONATATE 200 MG CAPSULE PO PRN (20:02)
[2023-11-02] MEDS ORDERED: DICYCLOMINE HCL 10 MG CAPSULE PO PRN (20:02)
[2023-11-02] MEDS ORDERED: NALOXONE HCL (KLOXXADO) 8 MG SPRAY NS PRN (20:02)
[2023-11-02] MEDS ORDERED: METHOCARBAMOL 500 MG TABLET PO PRN (20:02)
[2023-11-02] MEDS ORDERED: guaiFENesin 600 MG TABLET.ER (FP) PO PRN (20:02)
[2023-11-02] MEDS ORDERED: NALOXONE HCL 0.4 MG/ML VIAL IM PRN (20:02)
[2023-11-02] MEDS ORDERED: chlordiazePOXIDE HCL 25 MG CAPSULE PO PRN (20:02)
[2023-11-02] MEDS ORDERED: BISMUTH SUBSALICYLATE 524 MG/30 ML PO PRN (20:02)
[2023-11-02] MEDS ORDERED: ACETAMINOPHEN 325 MG TABLET (FP) PO PRN (20:02)
[2023-11-02] MEDS ORDERED: MAGNESIUM HYDROX 2400MG/30ML ORAL SUSPENSION 30 ML CUP PO PRN (20:02)
[2023-11-02] MEDS: chlordiazePOXIDE HCL 25 MG CAPSULE PO SCH (22:34)
[2023-11-02] MEDS: THIAMINE 100 MG TABLET PO SCH (22:34)
[2023-11-02] MEDS: MELATONIN 5 MG TABLETS PO SCH (22:35)
[2023-11-03] MEDS: PRENATAL VITAMINS W/ FOLIC ACID TABLET (FP) PO SCH (10:23)
[2023-11-03] MEDS: amLODIPine BESYLATE 10 MG TABLET (FP) PO SCH (10:23)
[2023-11-03] MEDS: levETIRAcetam 500 MG TABLET (FP) PO SCH (10:23)
[2023-11-03 11:26] LABS: CHLORIDE 105 mmol/L (98-107); SODIUM 137 mmol/L (136-145)
[2023-11-03 11:31] LABS: ALBUMIN 3.4 g/dl (3.4-5.0)
[2023-11-03 11:31] LABS: HEMATOCRIT 39.9 % (35.4-49); HEMOGLOBIN 12.9 GM/dL (11.7-16.9); MCHC 32.3 g/dl (32.0-35.9); MEAN CELL VOLUME 86.7 fl (80-96); MEAN PLT VOLUME 9.7 fl (7.5-11.1); PLATELET COUNT 212 10^3/uL (134-434); RBC 4.61 M/mm3 (4.00-5.60); RDW 13.9 % (11.9-15.9); WHITE BLOOD COUNT 5.3 K/mm3 (4.0-10.0)
[2023-11-03 11:32] LABS: ANION GAP 3 mmol/L (4-13); BLOOD UREA NITROGEN 12.5 mg/dL (7-18); CALCIUM 9.2 mg/dL (8.5-10.1); CO2 29 mmol/L (21-32); GLUCOSE,RANDOM 69 mg/dL (74-106)
[2023-11-03 11:35] LABS: CREATININE 0.9 mg/dL (0.55-1.3); SGOT/AST 32 U/L (15-37); SGPT/ALT 25 U/L (13-61)
[2023-11-03 11:37] LABS: BILIRUBIN,TOTAL 0.4 mg/dL (0.2-1); TOT PROT 6.8 g/dl (6.4-8.2)
[2023-11-03 11:38] LABS: ALK PHOS 89 U/L (45-117)
[2023-11-03] MEDS: PNEUMOC 20-VAL CONJ-DIP CRM/PF 0.5 ML SYRINGE IM ONE (12:07)
[2023-11-03 19:02] LABS: HIV INTERPRETATION NEGATIVE (NEGATIVE)
[2023-11-04] MEDS: chlordiazePOXIDE HCL 25 MG CAPSULE PO SCH (05:37)
[2023-11-05] MEDS ORDERED: chlordiazePOXIDE HCL 10 MG CAPSULE PO PRN
[2023-11-05] MEDS: chlordiazePOXIDE HCL 10 MG CAPSULE PO SCH (05:25)
[2023-11-06] MEDS: chlordiazePOXIDE HCL 10 MG CAPSULE PO SCH (05:19)
[2023-11-07] MEDS: chlordiazePOXIDE HCL 10 MG CAPSULE PO ONE (05:24)
[2023-11-07 10:02] VITALS: BP 135/75; PULSE 77; RESP 18; TEMP 97.6
== END 2023-11-07 09:35 | disposition home or self-care (01) | DRG 774 ==
LOC: YASAS 17:51 → Y6N 19:49
PROVIDERS: ADMIT Allergy & Immunology; ATTEND Surgery
PROC: HZ2ZZZZ Detoxification Services for Substance Abuse Treatment (ICD-10-PCS; principal; 2023-11-02)
DX: F10.230 Alcohol dependence with withdrawal, uncomplicated (principal); F14.20 Cocaine dependence, uncomplicated; F16.20 Hallucinogen dependence, uncomplicated; F12.20 Cannabis dependence, uncomplicated; F23 Brief psychotic disorder; F41.9 Anxiety disorder, unspecified; F17.210 Nicotine dependence, cigarettes, uncomplicated; G40.909 Epilepsy, unspecified, not intractable, without status epilepticus; I10 Essential (primary) hypertension
CPT/HCPCS: 36415; 71045-TC-FY; 80053; 80305; 80307; 82550; 82553; 84484; 85027; 85651; 86141; 86780; 86803; 87389; 90677; 93005; 93010; G0009